=== PATIENT | female | born 1990 | race Caucasian/White ===

== ENCOUNTER 2019-03-10 07:01 | Day surgery (SDC) | payer BC, OTHER ==
--- NOTE | 2019-03-09 09:38 | PCM.PREANE ---
Preanesthetic Assessment - Anesthesia/Transfusion/Family Hx Anesthesia History: Prior Anesthesia Without Reaction Family History of Anesthesia Reaction: No Transfusion History: No Prior Transfusion(s) Intubation History: Unknown - Review of Systems General: No Symptoms Pulmonary: No Symptoms (Smoker: less than 1ppd for less than 5 years.) Cardiovascular: No Symptoms Gastrointestinal: Abdominal Pain (scale: 3/10) Neurological: No Symptoms Other: Reports: Easy Bruising, Thyroid Problems (History of thyromegaly), Sinus Problem (History of allergic rhinitis), Depression, Anxiety - Physical Assessment NPO Status Date: 03/09/19 NPO Status Time: 23:30 Pulse: 72 O2 Sat by Pulse Oximetry: 100 Respiratory Rate: 16 Blood Pressure: 127/75 Temperature: 36.8 C Height: 1.63 m Weight: 100 kg ASA Class: 2 Mental Status: Alert & Oriented x3 Airway Class: Mallampati = 2 Dentition: Reports: Normal Dentition, Caries Thyro-Mental Finger Breadths: 3 Mouth Opening Finger Breadths: 3 ROM/Head Extension: Full Lungs: Clear to Auscultation, Normal Respiratory Effort Cardiovascular: Regular Rate, Regular Rhythm, No Murmurs - Allergies Allergies/Adverse Reactions: Allergies Allergy/AdvReac Type Severity Reaction Status Date / Time Penicillins Allergy Hives Verified 03/09/19 13:28 Sulfa (Sulfonamide Allergy Hives Verified 03/09/19 13:28 Antibiotics) suture Allergy Itching Verified 03/09/19 13:28 - Anesthesia Plan Pre-Op Medication Ordered: None - Acknowledgements Anesthesia Type Planned: MAC Pt an Appropriate Candidate for the Planned Anesthesia: Yes Alternatives and Risks of Anesthesia Discussed w Pt/Guardian: Yes Pt/Guardian Understands and Agrees with Anesthesia Plan: Yes PreAnesthesia Questionnaire HEENT History: Reports: Allergic Rhinitis, Other (See Below) Other HEENT History: eye pain Gastrointestinal History: Reports: Other (See Below) Other Gastrointestinal History: abdominal pain, biliary colic Genitourinary History: Reports: Other (See Below) Other Genitourinary History: dysuria, flank pain, UTI 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) Other OB/BYN History: irregular menses, ovarian cyst Psychiatric History: Reports: Anxiety, Other (See Below) Other Psychiatric History: fatigue, increased irritability Endocrine/Metabolic History: Reports: Vitamin D Deficiency Other Endocrine/Metabolic History: thyromegaly - Past Surgical History GI Surgical History: Reports: Cholecystectomy - HOME MEDS Home Medications: Home Meds Cholecalciferol (Vitamin D3) [Vitamin D3] 1,000 unit PO DAILY 03/09/19 [History] Ibuprofen 1,000 mg PO BID PRN 03/09/19 [History] Multivitamin [Multiple Vitamins] 1 tab PO DAILY 03/09/19 [History] valACYclovir HCl [Valtrex] 500 mg PO DAILY 03/09/19 [History] - CURRENT (IN HOUSE) MEDS Current Meds: Current Medications Lactated Ringer's (Ringers, Lactated) 1,000 mls @ 125 mls/hr IV ASDIRECTED JEFF Stop: 03/10/19 23:00 Lidocaine/Sodium Bicarbonate (Buffered Lidocaine 1% In Ns 8.4%) 0.25 ml IDERM ONETIME PRN PRN Reason: Prior to IV Start Stop: 03/10/19 18:00 Sodium Chloride (Saline Flush) 10 ml FLUSH ASDIRECTED PRN PRN Reason: Keep Vein Open Stop: 03/10/19 18:00
[~2019-03-10 07:01] MED LIST: Lactated Ringers 1,000 ML IV SCH; Lidocaine 1%/Sod Bicarbonate in NS 8.4% 1 ML Syringe IDERM PRN; Sodium Chloride 0.9% 10 ML Syringe FLUSH PRN
[2019-03-10] MEDS ORDERED: Lidocaine 1% 6 ML ONE (07:27)
[2019-03-10] MEDS ORDERED: Propofol 200 MG/20 ML SDV ONE (07:28)
[2019-03-10] MEDS ORDERED: fentaNYL 100 MCG/2 ML SDV ONE (07:28)
--- NOTE | 2019-03-10 08:25 | PCM48HPAN ---
Post Anesthesia Note - EVALUATION WITHIN 48HRS OF ANESTHETIC Vital Signs in Normal Range: Yes Patient Participated in Evaluation: Yes Respiratory Function Stable: Yes Airway Patent: Yes Cardiovascular Function Stable: Yes Hydration Status Stable: Yes Pain Control Satisfactory: Yes Nausea and Vomiting Control Satisfactory: Yes Mental Status Recovered: Yes
[2019-03-10 09:30] VITALS: BP 124/77
--- NOTE | 2019-03-10 16:01 | OR ---
DATE OF OPERATION: 03/10/2019 SURGEON: Galindo Calderón MD PREOPERATIVE DIAGNOSIS: Question of celiac disease. POSTOPERATIVE DIAGNOSIS: 1. Question of celiac disease. 2. Sliding hiatal hernia. OPERATION PERFORMED: Esophagogastroduodenoscopy with biopsies. FINDINGS: She has a patulous EG junction with a sliding hiatal hernia. I did not identify any ulcers, no mucosal lesions. She does not appear to have villous blunting in the duodenum. There is no Pollock's esophagus. ANESTHESIA: Procedural sedation. COMPLICATIONS: None. ESTIMATED BLOOD LOSS: Minimal. DISPOSITION: Stable at the end of the procedure. PATHOLOGY: 1. Duodenum. 2. Antrum. 3. Body. 4. Fundus. 5. Distal esophagus. INDICATION: Taylor presented to my office with a question of celiac disease. She is seronegative, though she had marginally elevated IgG to gluten. The patient was booked for an EGD to investigate celiac disease. She was fully informed of the major risks of the procedure. These include, but are not limited to perforation of GI tract, bleeding, aspiration, pneumonia, recurrent surgery, and many other. She gave informed consent for what was done. DESCRIPTION OF PROCEDURE: Su was brought to the gastro suite and placed in the left lateral decubitus position. She was given a bite block and procedural sedation. The endoscope was passed uneventfully into the proximal esophagus. I advanced the scope slowly, keeping the lumen in view at all times. The scope was passed into the stomach and then flexed into the duodenum past the third portion of the duodenum and took random biopsies of the duodenum from the third portion down up to the first portion. I did not note any ulcers or villous blunting on gross examination. We withdrew the scope into the stomach and biopsied the antrum, body, and fundus. There was no evidence of ulcerations in the stomach. I did retroflex view the GE junction and found a patulous GE junction. I straightened the scope and brought it into the esophagus. There was no salmon pink mucosa, but she clearly has a sliding hiatal hernia. I biopsied the distal esophagus for esophagitis. I found no evidence of esophagitis on my examination. Toward the end of the procedure, I evacuated all the air from the stomach, checking from the biopsy sites for any further bleeding, and there was none. The scope was withdrawn into the esophagus, and the entirety of the esophagus was inspected for any mucosal lesions, and there were none. At the end of the procedure, the scope was withdrawn. She had no complications and tolerated the procedure well. DEBBIE /[id number]
== END 2019-03-10 08:50 | disposition home or self-care (01) ==
LOC: JD.SDS 07:01
PROVIDERS: ATTEND Surgery
DX: K44.9 Diaphragmatic hernia without obstruction or gangrene (principal); F41.9 Anxiety disorder, unspecified; F32.9 Major depressive disorder, single episode, unspecified; J30.9 Allergic rhinitis, unspecified; Z88.0 Allergy status to penicillin; Z88.2 Allergy status to sulfonamides; Z91.048 Other nonmedicinal substance allergy status; Z87.891 Personal history of nicotine dependence; Z79.899 Other long term (current) drug therapy
CPT/HCPCS: 43239; 81025; J2001; J2704; J3010; J7120; 00731

== ENCOUNTER 2020-07-04 10:38 | Emergency (ER) | payer OTHER ==
[2020-07-04 10:58] VITALS: BP 129/86; PULSE 73
--- NOTE | 2020-07-04 11:24 | EDM.PDOC ---
ED HPI GENERAL MEDICAL PROBLEM - General Chief Complaint: Respiratory Problem Stated Complaint: COVID + Time Seen by Provider: 07/04/20 11:05 Source of Information: Reports: Patient, RN Notes Reviewed History Limitations: Reports: No Limitations - History of Present Illness INITIAL COMMENTS - FREE TEXT/NARRATIVE: Patient is a 30-year-old female who presents to the ED for evaluation of her ongoing respiratory symptoms due to COVID-19. Patient states she was swabbed for COVID-19 on June 25, 2020, and she thinks that her symptoms may have started Friday, which was 1 day prior to the swab date. She states that she was abiding quarantine, and has been feeling well, up until this morning. She states that she woke up, feeling more short of breath, worse with exertion, some right-sided chest pain that seems to worsen when she takes a deep breath. She also notes a dry intermittent cough, she feels like she has to cough something up, but just states she cannot. She also notes that she has been fever free without the use of Tylenol or Advil since last June 27. Patient notes she is supposed to go back to work tomorrow, but was concerned about that return date. She notes she did try to call the [facility], but they gave her the "run around", and states no one would see her, as she might need hospitalization so they sent her to the ER for evaluation. She denies fever/chills, does have cough and shortness of breath, but no nausea/vomiting/diarrhea or any other sick-like symptoms. Patient's O2 sats at time of triage are 98% on room air, temperature is 97.4 F. Respiratory rate 18, in no visible respiratory distress whatsoever. She does also complain about feeling increased fatigue, but is still able to do many daily activities. She denies any chance of whatsoever. She states she is not sexually active at this time. Right Chest Pain Score (Numeric/FACES): 6 - Related Data Allergies Allergy/AdvReac Type Severity Reaction Status Date / Time Penicillins Allergy Hives Verified 07/04/20 10:59 Sulfa (Sulfonamide Allergy Hives Verified 07/04/20 10:59 Antibiotics) suture Allergy Itching Verified 07/04/20 10:59 Home Meds: Home Meds Cholecalciferol (Vitamin D3) [Vitamin D3] 1,000 unit PO DAILY 03/09/19 [History] Multivitamin [Multiple Vitamins] 1 tab PO DAILY 03/09/19 [History] valACYclovir HCl [Valtrex] 500 mg PO DAILY 03/09/19 [History] Ethinyl Estradiol/Etonogestrel [Nuvaring Vaginal Ring] 07/04/20 [History] estradioL [Estrogel] 1 dose TOP ASDIRECTED 07/04/20 [History] Past Medical History HEENT History: Reports: Allergic Rhinitis, Other (See Below) Other HEENT History: eye pain Gastrointestinal History: Reports: Other (See Below) Other Gastrointestinal History: abdominal pain, biliary colic Genitourinary History: Reports: Other (See Below) Other Genitourinary History: dysuria, flank pain, UTI 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) 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 History: irregular menses, ovarian cyst Psychiatric History: Reports: Anxiety, Other (See Below) Other Psychiatric History: fatigue, increased irritability Endocrine/Metabolic History: Reports: Vitamin D Deficiency Other Endocrine/Metabolic History: thyromegaly - Infectious Disease History Infectious Disease History: Reports: Novel Coronavirus (Jun) - Past Surgical History GI Surgical History: Reports: Cholecystectomy Musculoskeletal Surgical History: Reports: Other (See Below) Other Musculoskeletal Surgeries/Procedures:: right elbow surgery Social & Family History - Tobacco Use Smoking Status *Q: Never Smoker - Caffeine Use Caffeine Use: Reports: Coffee, Tea - Recreational Drug Use Recreational Drug Use: No - Living Situation & Occupation Living situation: Reports: Single, Alone 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 ED EXAM, GENERAL - Physical Exam Exam: See Below Exam Limited By: No Limitations General Appearance: Alert, WD/WN, No Apparent Distress Eye Exam: Bilateral Eye: EOMI, Normal Inspection, PERRL Throat/Mouth: Normal Inspection Head: Atraumatic, Normocephalic Neck: Normal Inspection Respiratory/Chest: No Respiratory Distress, Lungs Clear, Normal Breath Sounds, No Accessory Muscle Use, Other (chest mildly tender to palpation of the right anterior chest, in the midclavicular line) Cardiovascular: Normal Peripheral Pulses, Regular Rate, Rhythm, No Edema, No Murmur Peripheral Pulses: 2+: Radial (L), Radial (R) Extremities: Normal Inspection, Normal Capillary Refill Neurological: Alert, Oriented, Normal Cognition, No Motor/Sensory Deficits Psychiatric: Normal Affect, Normal Mood Skin Exam: Warm, Dry, Intact, Normal Color, No Rash Course - Vital Signs Last Recorded V/S: Last Vital Signs Temp 97.4 F 07/04/20 10:51 Pulse 73 07/04/20 10:51 Resp 18 07/04/20 10:51 BP 129/86 07/04/20 10:51 Pulse Ox 98 07/04/20 10:51 - Re-Assessments/Exams Free Text/Narrative Re-Assessment/Exam: 07/04/20 11:26 Patient presents to the ED for the evaluation of her ongoing respiratory symptoms with a diagnosis of COVID-19. Have ordered a 1 view chest x-ray to evaluate for possible brewing pneumonia. As patient has been afebrile, I do not believe labs would be pertinent at this time, or helpful, patient does agree at this time we will likely give her a few more days off of work, so she may recover a little longer, and will let her return on Friday if chest x-ray appears within normal limits. Nonetheless I do not believe she requires hospitalization at all. 07/04/20 11:46 X-ray does demonstrate no acute changes that would be suggestive of pneumonia or other consolidation. Departure - Departure Time of Disposition: 11:48 Disposition: Home, Self-Care 01 Condition: Good Clinical Impression: COVID-19 - Discharge Information *PRESCRIPTION DRUG MONITORING PROGRAM REVIEWED*: No *COPY OF PRESCRIPTION DRUG MONITORING REPORT IN PATIENT MANJEET: No Instructions: COVID-19: How to Protect Yourself and Others - CDC Forms: ED Department Discharge, ED Return to Work/School Form Additional Instructions: You were seen in the ER today for ongoing and/or worsening respiratory symptoms. Your chest x-ray showed no signs of pneumonia at this time. Your oxygen levels were great at 97-98% on room air. You have already been diagnosed with coronavirus, almost a week ago. It is likely that you are not shedding this virus any longer, but this disease is still quite unknown to most of healthcare community, you may have ongoing lingering respiratory symptoms for quite some time. This disease process seems to change on an individual basis. Please try to increase your oral fluid intake, and eat multiple small meals throughout the day, to keep yourself healthy. You may take 500 mg Tylenol every hours 6 hours for pain/fever relief. Do not exceed 4000 mg Tylenol in a 24-hour time span. However, running a fever is your body's natural response to illness, and it allows the body to develop antibodies to disease, we are recommending trying to limit the use of Tylenol as much as possible to allow your body's natural immune response. Sepsis Event Note (ED) - Evaluation Sepsis Screening Result: No Definite Risk - Focused Exam Vital Signs: Vital Signs Temp Pulse Resp BP Pulse Ox 07/04/20 10:51 97.4 F 73 18 129/86 98
--- NOTE | 2020-07-04 11:45 | CR ---
Chest: Portable view of the chest was obtained. Comparison: No previous study. Heart size and mediastinum are normal. Lungs are clear. Minimal scoliosis is noted within the spine. Previous cholecystectomy is noted. Impression: 1. Nothing acute is appreciated on portable chest x-ray. Diagnostic code #2 This report was dictated in MDT
== END 2020-07-04 12:20 | disposition home or self-care (01) ==
LOC: JD.ED 10:38
DX: U07.1 COVID-19 (principal); Z88.0 Allergy status to penicillin; Z88.2 Allergy status to sulfonamides; Z91.09 Other allergy status, other than to drugs and biological substances; Z79.899 Other long term (current) drug therapy
CPT/HCPCS: 71045; 71045-26; 99282; 99284-25

== ENCOUNTER 2020-12-18 17:49 | Emergency (ER) | payer OTHER ==
[2020-12-18 17:59] VITALS: BP 136/88; PULSE 76
--- NOTE | 2020-12-18 18:21 | EDM.PDOC ---
<Adelina Li - Last Filed: 12/18/20 18:14> ED HPI GENERAL MEDICAL PROBLEM - General Chief Complaint: Flank Pain Stated Complaint: RT FLANK PAIN Time Seen by Provider: 12/18/20 17:59 Source of Information: Reports: Patient History Limitations: Reports: No Limitations - History of Present Illness INITIAL COMMENTS - FREE TEXT/NARRATIVE: Taylor is a 30 year old female presenting to the ED with complaints of right flank pain. She was seen in clinic today for UTI like symptoms, but urine results were unremarkable other than mild yeast shown. She was told that her insurance would only be covered under an emergency or prior authorization to which she did not want to wait for that. She states the pain started roughly four days ago, while she had had a UTI for a couple of weeks and was treated with Macrobid. She describes the flank pain as sharp, stabbing and intermittent. She states the pain is located in her right mid upper back and radiates down into her pelvic region. She denies urgency, frequency, burning with urination. However, she does complain of inability to fully empty her bladder. She states the amount voided varies each time she goes. She complains of mild nausea secondary to the flank pain and states she either "wants to vomit or pass out" due to the pain. She also states the pain takes her breath away. She personally does not have a past history of kidney stones, but both her mother and father have had kidney stones. She denies fever, chills, sweats, or abdominal pain. Right Flank Pain Score (Numeric/FACES): 8 - Related Data Allergies Allergy/AdvReac Type Severity Reaction Status Date / Time Penicillins Allergy Severe Hives Verified 12/18/20 17:59 suture Allergy Severe Itching Verified 12/18/20 17:59 Sulfa (Sulfonamide AdvReac Severe Other Verified 12/18/20 17:59 Antibiotics) Home Meds: Home Meds Cholecalciferol (Vitamin D3) [Vitamin D3] 1,000 unit PO DAILY 03/09/19 [History] valACYclovir HCl [Valtrex] 500 mg PO DAILY 03/09/19 [History] Ethinyl Estradiol/Etonogestrel [Nuvaring Vaginal Ring] 07/04/20 [History] Cefdinir [Omnicef] 300 mg PO BID 7 Days #14 cap 12/18/20 [Rx] Past Medical History HEENT History: Reports: Allergic Rhinitis, Other (See Below) Other HEENT History: eye pain Cardiovascular History: Reports: None Respiratory History: Reports: None Gastrointestinal History: Reports: Other (See Below) Other Gastrointestinal History: abdominal pain, biliary colic Genitourinary History: Reports: Other (See Below) Other Genitourinary History: dysuria, flank pain, UTI 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: irregular 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, ovarian cyst Musculoskeletal History: Reports: None Neurological History: Reports: None Psychiatric History: Reports: Anxiety, Other (See Below) Other Psychiatric History: fatigue, increased irritability Endocrine/Metabolic History: Reports: Obesity/BMI 30+, Vitamin D Deficiency Other Endocrine/Metabolic History: thyromegaly Hematologic History: Reports: None Immunologic History: Reports: None Oncologic (Cancer) History: Reports: None Dermatologic History: Reports: None - Infectious Disease History Infectious Disease History: Reports: Novel Coronavirus (Jun) - Past Surgical History HEENT Surgical History: Reports: Tonsillectomy GI Surgical History: Reports: Cholecystectomy Musculoskeletal Surgical History: Reports: Other (See Below) Other Musculoskeletal Surgeries/Procedures:: right elbow surgery Social & Family History - Tobacco Use Tobacco Use Status *Q: Never Tobacco User - Caffeine Use Caffeine Use: Reports: Coffee - Recreational Drug Use Recreational Drug Use: No - Living Situation & Occupation Living situation: Reports: Single, Alone 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 ED EXAM, RENAL/ - Physical Exam Exam: See Below Exam Limited By: No Limitations General Appearance: Alert, WD/WN, No Apparent Distress Respiratory/Chest: No Respiratory Distress, Lungs Clear, Normal Breath Sounds, No Accessory Muscle Use, Chest Non-Tender Cardiovascular: Normal Peripheral Pulses, Regular Rate, Rhythm, No Edema, No Gallop, No JVD, No Murmur, No Rub GI/Abdominal: Normal Bowel Sounds, Soft, Non-Tender Back Exam: CVA Tenderness (R) (Patient is markedly tender to light touch and moved away in response to the discomfort. ) Extremities: Normal Inspection, Normal Range of Motion Neurological: Alert, Oriented, CN II-XII Intact Psychiatric: Normal Affect, Normal Mood Skin Exam: Warm, Dry, Intact, Normal Color, No Rash Lymphatic: No Adenopathy Course - Re-Assessments/Exams Free Text/Narrative Re-Assessment/Exam: 12/18/20 18:24 Taylor is a 30 year old female presenting to the ED with complaints of right flank pain. The pain started roughly four days ago and has been sharp, stabbing and intermittent. She states the pain takes her breath away while making her want to vomit or pass out. She has no urinary symptoms other than the feeling of inability to empty her bladder all of the way. Due to her severe CVA tenderness and family history of kidney stones, CT abdomen pelvis will be done along with routine labs to assess kidney function. Nausea medication is ordered. Departure - Departure Disposition: Home, Self-Care 01 Clinical Impression: Right flank pain UTI (urinary tract infection) Qualifiers: Urinary tract infection type: acute cystitis Hematuria presence: with hematuria Qualified Code(s): N30.01 - Acute cystitis with hematuria - Discharge Information Instructions: Pyelonephritis, Adult, [id number] Referrals: Katarzyna Ray PA-C [Primary Care Provider] - Forms: ED Department Discharge Additional Instructions: You were evaluated in the ER today for your right flank pain. A CT was done at this ER visit, this demonstrated no sign of a kidney stone at today's visit, however your outpatient labs done prior to coming to the ER, did demonstrate ongoing UTI, yeast infection that you were treated for however if you do not notice improvement of symptoms within 2 to 3 days time I recommend you follow-up with your regular care provider for repeat dosing. Possible bacterial vaginosis again you should follow-up with your regular provider for. You have been started on an antibiotic called Omnicef, dosing will be 1 tablet twice daily for the next 7 days. Your urine was sent for culture by your regular care provider, if you should need a change in your antibiotics, she should be able to facilitate this. Please note that antibiotics can take up to 48 hours to start providing benefit. Recommend you take Tylenol/ibuprofen every 6 hours as needed for further pain relief. Do not exceed 4000 mg Tylenol or 3200 mg ibuprofen in a 24-hour time span. Please return to the ED if your symptoms change or worsen. Sepsis Event Note (ED) - Evaluation Sepsis Screening Result: No Definite Risk <Myrna Oneill V - Last Filed: 12/18/20 19:10> Course - Vital Signs Last Recorded V/S: Last Vital Signs Temp 96.9 F 12/18/20 17:56 Pulse 76 12/18/20 17:56 Resp 16 12/18/20 17:56 BP 136/88 12/18/20 17:56 Pulse Ox 98 12/18/20 17:56 - Orders/Labs/Meds Orders: Active Orders 24 hr Category Date Time Status Cefdinir [Omnicef] Med 12/18/20 19:05 Once 300 mg PO ONETIME ONE Labs: Laboratory Tests 12/18/20 12/18/20 Range/Units 18:23 18:23 WBC 9.60 (3.98-10.04) K/mm3 RBC 4.48 (3.98-5.22) M/mm3 Hgb 12.7 D (11.2-15.7) gm/dl Hct 39.7 (34.1-44.9) % MCV 88.6 (79.4-94.8) fl MCH 28.3 (25.6-32.2) pg MCHC 32.0 L (32.2-35.5) g/dl RDW Std Deviation 41.4 (36.4-46.3) fL Plt Count 467 H (182-369) K/mm3 MPV 8.1 L (9.4-12.3) fl Neut % (Auto) 57.0 (34.0-71.1) % Lymph % (Auto) 34.5 (19.3-51.7) % Parmer % (Auto) 5.4 (4.7-12.5) % Eos % (Auto) 2.5 (0.7-5.8) Baso % (Auto) 0.5 (0.1-1.2) % Neut # (Auto) 5.47 (1.56-6.13) K/mm3 Lymph # (Auto) 3.31 (1.18-3.74) K/mm3 Parmer # (Auto) 0.52 H (0.24-0.36) K/mm3 Eos # (Auto) 0.24 (0.04-0.36) K/mm3 Baso # (Auto) 0.05 (0.01-0.08) K/mm3 Sodium 143 (136-145) mEq/L Potassium 3.7 (3.5-5.1) mEq/L Chloride 106 (98-107) mEq/L Carbon Dioxide 23 (21-32) mEq/L Anion Gap 17.7 H (5-15) BUN 11 (7-18) mg/dL Creatinine 0.8 (0.55-1.02) mg/dL Est Cr Clr Drug Dosing 88.79 mL/min Estimated GFR (MDRD) > 60 (>60) mL/min BUN/Creatinine Ratio 13.8 L (14-18) Glucose 85 (74-106) mg/dL Calcium 8.8 (8.5-10.1) mg/dL Total Bilirubin 0.3 (0.2-1.0) mg/dL AST 14 L (15-37) U/L ALT 22 (14-59) U/L Alkaline Phosphatase 67 (46-116) U/L Total Protein 7.6 (6.4-8.2) g/dl Albumin 3.6 (3.4-5.0) g/dl Globulin 4.0 gm/dL Albumin/Globulin Ratio 0.9 L (1-2) Meds: Medications Discontinued Medications Generic Name Dose Route Start Last Admin Trade Name Freq PRN Reason Stop Dose Admin Hydromorphone HCl 0.5 mg 12/18/20 18:23 Dilaudid IM 12/18/20 18:24 ONETIME ONE Ondansetron HCl 4 mg 12/18/20 18:23 Zofran Odt PO 12/18/20 18:24 ONETIME ONE - Re-Assessments/Exams Free Text/Narrative Re-Assessment/Exam: 12/18/20 19:05 I have read and reviewed the student's HPI and examined the patient and agree with YANIRA Martinez-student. CT demonstrates no sign of a kidney stone however patient still having ongoing pain. We will start her on Omnicef 300 mg twice daily for the next 7 days and have her follow-up with her regular care provider for ongoing management. Review of patient's labs done today, do demonstrate a ongoing UTI, yeast infection, that she states she was treated for, Possible bacterial vaginosis, that she is going to follow-up with her regular care provider for. Departure - Departure Time of Disposition: 19:07 Condition: Good - Discharge Information *PRESCRIPTION DRUG MONITORING PROGRAM REVIEWED*: No *COPY OF PRESCRIPTION DRUG MONITORING REPORT IN PATIENT MANJEET: No Sepsis Event Note (ED) - Focused Exam Vital Signs: Vital Signs Temp Pulse Resp BP Pulse Ox 12/18/20 17:56 96.9 F 76 16 136/88 98 - My Orders Last 24 Hours: My Active Orders 12/18/20 19:05 Cefdinir [Omnicef] 300 mg PO ONETIME ONE - Assessment/Plan Last 24 Hours: My Active Orders 12/18/20 19:05 Cefdinir [Omnicef] 300 mg PO ONETIME ONE
[2020-12-18] MEDS ORDERED: Ondansetron 4 MG Tab.DIS PO ONE (18:23)
[2020-12-18] MEDS ORDERED: HYDROmorphone 0.5 MG/0.5 ML Syringe IM ONE (18:23)
--- NOTE | 2020-12-18 18:49 | CT ---
CT abdomen and pelvis Technique: Multiple axial sections were obtained from slightly below the top of the liver inferiorly through the pubic symphysis. Intravenous and oral contrast was not utilized. Study has been performed as a ureteral stone protocol. Findings: Kidneys show no abnormal calcifications. No ureteral dilatation or ureteral stone is seen. No bladder calculi are appreciated. No inflammatory change is seen around the kidneys. Visualized lung bases show nothing acute. Visualized portions of the liver and spleen appear within normal limits. Adrenal glands show no nodule. Pancreas is normal. Surgical clips are seen from prior cholecystectomy. Aorta shows no aneurysm. No retroperitoneal adenopathy or mesenteric abnormalities are seen. Appendix is seen which is normal. No pelvic mass or adenopathy is appreciated. Bone window surveys were obtained which show no acute osseous finding. Impression: 1. No ureteral stone or ureteral dilatation is seen. No inflammatory change is seen around the kidneys. 2. Other findings believed to be within normal limits as described above. Diagnostic code #1
[2020-12-18] MEDS ORDERED: Cefdinir 300 MG Cap PO ONE (19:05)
== END 2020-12-18 19:20 | disposition home or self-care (01) ==
LOC: JD.ED 17:49
DX: N30.01 Acute cystitis with hematuria (principal); E66.9 Obesity, unspecified; Z68.41 Body mass index [BMI] 40.0-44.9, adult; Z88.0 Allergy status to penicillin; Z91.048 Other nonmedicinal substance allergy status; Z88.2 Allergy status to sulfonamides
CPT/HCPCS: 36415; 74176; 80053; 85025; 96372; 99284; A9270; J1170; 99283

== ENCOUNTER 2021-04-17 13:44 | Emergency (ER) | payer BC, OTHER ==
--- NOTE | 2021-04-17 13:50 | EDM.PDOC ---
ED HPI GENERAL MEDICAL PROBLEM - General Chief Complaint: Lower Extremity Injury/Pain Stated Complaint: L ANKLE INJURY Time Seen by Provider: 04/17/21 13:49 - History of Present Illness INITIAL COMMENTS - FREE TEXT/NARRATIVE: 31-year-old female presents the emergency room with a left ankle injury. Shortly before arrival patient stepped in a hole. Everything happened so fast she is not entirely sure what happened. She has pain on the outside of her ankle and behind her ankle. Patient denies any other injury associated with this most unfortunate event. The patient did not fall. Left Ankle Pain Score (Numeric/FACES): 10 - Related Data Allergies Allergy/AdvReac Type Severity Reaction Status Date / Time Penicillins Allergy Severe Hives Verified 04/17/21 13:52 suture Allergy Severe Itching Verified 04/17/21 13:52 Sulfa (Sulfonamide AdvReac Severe Other Verified 04/17/21 13:52 Antibiotics) Home Meds: Home Meds Cholecalciferol (Vitamin D3) [Vitamin D3] 1,000 unit PO DAILY 03/09/19 [History] valACYclovir HCl [Valtrex] 500 mg PO DAILY 03/09/19 [History] Ethinyl Estradiol/Etonogestrel [Nuvaring Vaginal Ring] 07/04/20 [History] Past Medical History HEENT History: Reports: Allergic Rhinitis, Other (See Below) Other HEENT History: eye pain Cardiovascular History: Reports: None Respiratory History: Reports: None Gastrointestinal History: Reports: Other (See Below) Other Gastrointestinal History: abdominal pain, biliary colic Genitourinary History: Reports: Other (See Below) Other Genitourinary History: dysuria, flank pain, UTI 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 PILOT MECHANIC History: irregular menses, ovarian cyst Musculoskeletal History: Reports: None Neurological History: Reports: None Psychiatric History: Reports: Anxiety, Other (See Below) Other Psychiatric History: fatigue, increased irritability Endocrine/Metabolic History: Reports: Obesity/BMI 30+, Vitamin D Deficiency Other Endocrine/Metabolic History: thyromegaly Hematologic History: Reports: None Immunologic History: Reports: None Oncologic (Cancer) History: Reports: None Dermatologic History: Reports: None - Infectious Disease History Infectious Disease History: Reports: Novel Coronavirus (Jun) - Past Surgical History HEENT Surgical History: Reports: Tonsillectomy GI Surgical History: Reports: Cholecystectomy Musculoskeletal Surgical History: Reports: Other (See Below) Other Musculoskeletal Surgeries/Procedures:: right elbow surgery Social & Family History - Caffeine Use Caffeine Use: Reports: Coffee - Living Situation & Occupation Living situation: Reports: Single, Alone 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) Review of Systems - Review of Systems Review Of Systems: See Below Constitutional: Reports: No Symptoms Respiratory: Reports: No Symptoms Cardiovascular: Reports: No Symptoms GI/Abdominal: Reports: No Symptoms Genitourinary: Reports: No Symptoms, Other (Patient denies any possibility of being ) ED EXAM, GENERAL - Physical Exam Exam: See Below Exam Limited By: No Limitations General Appearance: Alert, No Apparent Distress Respiratory/Chest: No Respiratory Distress, Lungs Clear, Normal Breath Sounds Cardiovascular: Regular Rate, Rhythm, No Edema, No Murmur Extremities: Leg Pain (No significant discomfort around the medial malleolus patient has mild discomfort in the posterior aspect of the lateral malleolus. But most of this comes to the area of the Achilles. No foot pain with palpation no pain over the base the fifth metatarsal. Neurovascular status of the foot is debbie), Other (Patient has significant pain behind her ankle and again on the lateral aspect it is really hard to get an accurate exam. She has maintained some strength in her Achilles however when she relaxes these muscles the pain gets worse. ) Course - Vital Signs Last Recorded V/S: Last Vital Signs Temp 36.3 C 04/17/21 13:56 Pulse 102 H 04/17/21 13:56 Resp 18 04/17/21 13:56 BP 165/94 H 04/17/21 13:56 Pulse Ox 98 04/17/21 13:56 - Orders/Labs/Meds Orders: Active Orders 24 hr Category Date Time Status Durable Medical Equipment for Discharge [DME for Oth 04/17/21 15:01 Ordered Discharge] [COMM] Stat - Re-Assessments/Exams Free Text/Narrative Re-Assessment/Exam: 04/17/21 15:05 X-ray examination is negative for acute fracture dislocation of the ankle and tib-fib on the left side. Place the patient in a walking boot and crutches I cannot confirm a significant strain or partial disruption to the Achilles. We will keep the patient nonweightbearing with close follow-up in the clinic later this week. The patient will use crutches and a walking boot to minimize further injury and facilitate healing and recovery for this apparent soft tissue injury. Departure - Departure Time of Disposition: 15:08 Disposition: Home, Self-Care 01 Clinical Impression: Left ankle injury - Discharge Information Referrals: Katarzyna Ray PA-C [Primary Care Provider] - Forms: ED Department Discharge Additional Instructions: Return to the emergency room with any questions problems or worsening symptoms. Follow-up in the clinic in a couple of days either or Friday for recheck. Use the walking boot at all times and get around using the crutches at all times you should not bear weight on your left leg. Tylenol and/or Motrin as needed for discomfort Sepsis Event Note (ED) - Focused Exam Vital Signs: Vital Signs Temp Pulse Resp BP Pulse Ox 04/17/21 13:56 36.3 C 102 H 18 165/94 H 98 - My Orders Last 24 Hours: My Active Orders 04/17/21 15:01 Durable Medical Equipment for Discharge [DME for Discharge] [COMM] Stat - Assessment/Plan Last 24 Hours: My Active Orders 04/17/21 15:01 Durable Medical Equipment for Discharge [DME for Discharge] [COMM] Stat
[2021-04-17 14:00] VITALS: BP 165/94; PULSE 102
--- NOTE | 2021-04-17 14:56 | CR ---
Left tibia and fibula: AP and lateral views of the left tibia and fibula were obtained. Comparison: No prior left tibia or fibula study is available. No acute fracture or other bony abnormality is appreciated. Impression: 1. Nothing acute is appreciated on 2 view left tibia and fibula study. Diagnostic code #1
--- NOTE | 2021-04-17 14:57 | CR ---
Left ankle: 4 views of the left ankle were obtained. Comparison: No prior left ankle study is available. Ankle mortise is symmetric. No acute fracture, dislocation or other bony abnormality is appreciated. Impression: 1. Nothing acute is seen on left ankle exam. Diagnostic code #1
== END 2021-04-17 16:30 | disposition home or self-care (01) ==
LOC: JD.ED 13:44
DX: S99.912A Unspecified injury of left ankle, initial encounter (principal); E66.9 Obesity, unspecified; Z68.41 Body mass index [BMI] 40.0-44.9, adult; Z88.0 Allergy status to penicillin; Z91.048 Other nonmedicinal substance allergy status; Z88.2 Allergy status to sulfonamides; X50.9XXA Other and unspecified overexertion or strenuous movements or postures, initial encounter
CPT/HCPCS: 73590-26-LT; 73590-LT; 73610-26-LT; 73610-LT; 99283; 99283-25

== ENCOUNTER 2021-11-05 12:46 | Emergency (ER) | payer BC ==
[2021-11-05 12:56] VITALS: BP 136/70; PULSE 105
[2021-11-05] MEDS ORDERED: Sodium Chloride 0.9% 10 ML Syringe FLUSH PRN ×2 (13:01→14:03)
[2021-11-05] MEDS ORDERED: HYDROmorphone 0.5 MG/0.5 ML Syringe IVPUSH ONE (13:20)
[2021-11-05] MEDS ORDERED: Sodium Chloride 0.9% 1,000 ML IV STA (13:20)
[2021-11-05] MEDS ORDERED: Ondansetron 4 MG/2 ML SDV IVPUSH ONE (13:20)
--- NOTE | 2021-11-05 13:41 | EDM.PDOC ---
ED HPI GENERAL MEDICAL PROBLEM - General Chief Complaint: Gastrointestinal Problem Stated Complaint: RIGHT SIDE PAIN Time Seen by Provider: 11/05/21 13:12 Source of Information: Reports: Patient, RN Notes Reviewed History Limitations: Reports: No Limitations - History of Present Illness INITIAL COMMENTS - FREE TEXT/NARRATIVE: Patient is a 31-year-old female presenting to the emergency department with complaints of periumbilical and right lower quadrant abdominal pain. Reports symptoms began around 5 AM this morning. She describes it as a constant pain with occasional "stabbing "pains. She has been having diarrhea since this morning and feels quite nauseous but has not vomited. Denies any blood in her stool. She has not had any fevers but states she has felt chilled. She has had previous cholecystectomy but does still have her appendix. Denies any history of kidney stones. Right Lower Abdomen Pain Score (Numeric/FACES): 8 - Related Data Allergies Allergy/AdvReac Type Severity Reaction Status Date / Time Penicillins Allergy Intermediate Hives Verified 11/05/21 12:51 suture Allergy Mild Itching Verified 11/05/21 12:51 Sulfa (Sulfonamide AdvReac Mild Other Verified 11/05/21 12:51 Antibiotics) Home Meds: Home Meds Cholecalciferol (Vitamin D3) [Vitamin D3] 1,000 unit PO DAILY 03/09/19 [History] valACYclovir HCl [Valtrex] 500 mg PO DAILY 03/09/19 [History] Ethinyl Estradiol/Etonogestrel [Nuvaring Vaginal Ring] 1 vag ring VAG ASDIRECTED 07/04/20 [History] Dicyclomine [Bentyl] 20 mg PO Q8H PRN #12 tab 11/05/21 [Rx] Nitrofurantoin Monohyd/M-Cryst [Macrobid 100 mg Capsule] 100 mg PO BID 5 Days #10 capsule 11/05/21 [Rx] Ondansetron [Zofran ODT] 4 mg PO Q6H PRN #10 tab.dis 11/05/21 [Rx] Past Medical History HEENT History: Reports: Allergic Rhinitis, Other (See Below) Other HEENT History: eye pain Cardiovascular History: Reports: None Respiratory History: Reports: None Gastrointestinal History: Reports: Other (See Below) Other Gastrointestinal History: abdominal pain, biliary colic Genitourinary History: Reports: Other (See Below) Other Genitourinary History: dysuria, flank pain, UTI 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 VETERINARY RECEPTIONIST History: irregular menses, ovarian cyst Musculoskeletal History: Reports: None Neurological History: Reports: None Psychiatric History: Reports: Anxiety, Other (See Below) Other Psychiatric History: fatigue, increased irritability Endocrine/Metabolic History: Reports: Obesity/BMI 30+, Vitamin D Deficiency Other Endocrine/Metabolic History: thyromegaly Hematologic History: Reports: None Immunologic History: Reports: None Oncologic (Cancer) History: Reports: None Dermatologic History: Reports: None - Infectious Disease History Infectious Disease History: Reports: Novel Coronavirus - Past Surgical History Head Surgeries/Procedures: Reports: None HEENT Surgical History: Reports: Tonsillectomy Cardiovascular Surgical History: Reports: None Respiratory Surgical History: Reports: None GI Surgical History: Reports: Cholecystectomy Female Surgical History: Reports: None Neurological Surgical History: Reports: None Musculoskeletal Surgical History: Reports: Other (See Below) Other Musculoskeletal Surgeries/Procedures:: right elbow surgery Oncologic Surgical History: Reports: None Dermatological Surgical History: Reports: None Social & Family History - Family History Family Medical History: No Pertinent Family History - Tobacco Use Tobacco Use Status *Q: Never Tobacco User Second Hand Smoke Exposure: No - Caffeine Use Caffeine Use: Reports: Coffee - Recreational Drug Use Recreational Drug Use: No - Living Situation & Occupation Living situation: Reports: Single, Alone 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 Denies: Fever HEENT: Reports: No Symptoms Respiratory: Reports: No Symptoms Cardiovascular: Reports: No Symptoms Endocrine: Reports: No Symptoms GI/Abdominal: Reports: Abdominal Pain, Diarrhea, Nausea. Denies: Black Stool, Hematemesis, Hematochezia, Vomiting : Reports: Flank Pain. Denies: Dysuria, Hematuria Musculoskeletal: Reports: No Symptoms Skin: Reports: No Symptoms Neurological: Reports: No Symptoms Psychiatric: Reports: No Symptoms Hematologic/Lymphatic: Reports: No Symptoms Immunologic: Reports: No Symptoms ED EXAM, GI/ABD - Physical Exam Exam: See Below Exam Limited By: No Limitations General Appearance: Alert, WD/WN, No Apparent Distress Respiratory/Chest: No Respiratory Distress, Lungs Clear, Normal Breath Sounds, No Accessory Muscle Use, Chest Non-Tender Cardiovascular: Normal Peripheral Pulses, Regular Rate, Rhythm, No Edema, No Gallop, No JVD, No Murmur, No Rub GI/Abdominal Exam: Normal Bowel Sounds, Soft, No Organomegaly, No Distention, No Abnormal Bruit, No Mass, Pelvis Stable, Tender (Periumbilical and right lower quadrant) Neurological: Alert, Oriented, CN II-XII Intact, Normal Cognition, Normal Gait, Normal Reflexes, No Motor/Sensory Deficits Psychiatric: Normal Affect, Normal Mood Skin Exam: Warm, Dry, Intact, Normal Color, No Rash Course - Vital Signs Last Recorded V/S: Last Vital Signs Temp 97.9 F 11/05/21 12:53 Pulse 105 H 11/05/21 12:53 Resp 16 11/05/21 12:53 BP 136/70 11/05/21 12:53 Pulse Ox 98 11/05/21 12:53 - Orders/Labs/Meds Orders: Active Orders 24 hr Category Date Time Status CULTURE URINE [MREF] Stat Lab 11/05/21 13:50 Received Peripheral IV Insertion Adult [OM.PC] Stat Oth 11/05/21 13:01 Ordered Labs: Laboratory Tests 11/05/21 11/05/21 11/05/21 Range/Units 13:50 13:50 13:50 WBC 15.61 H (3.98-10.04) K/mm3 RBC 4.53 (3.98-5.22) M/mm3 Hgb 13.0 D (11.2-15.7) gm/dl Hct 39.4 (34.1-44.9) % MCV 87.0 (79.4-94.8) fl MCH 28.7 (25.6-32.2) pg MCHC 33.0 (32.2-35.5) g/dl RDW Std Deviation 37.6 (36.4-46.3) fL Plt Count 519 H (182-369) K/mm3 MPV 8.1 L (9.4-12.3) fl Neut % (Auto) 86.7 H (34.0-71.1) % Lymph % (Auto) 6.7 L (19.3-51.7) % [place] % (Auto) 5.1 (4.7-12.5) % Eos % (Auto) 0.8 (0.7-5.8) Baso % (Auto) 0.4 (0.1-1.2) % Neut # (Auto) 13.54 H (1.56-6.13) K/mm3 Lymph # (Auto) 1.05 L (1.18-3.74) K/mm3 [place] # (Auto) 0.79 H (0.24-0.36) K/mm3 Eos # (Auto) 0.12 (0.04-0.36) K/mm3 Baso # (Auto) 0.06 (0.01-0.08) K/mm3 Sodium (136-145) mEq/L Potassium (3.5-5.1) mEq/L Chloride (98-107) mEq/L Carbon Dioxide (21-32) mEq/L Anion Gap (5-15) BUN (7-18) mg/dL Creatinine (0.55-1.02) mg/dL Est Cr Clr Drug Dosing mL/min Estimated GFR (MDRD) (>60) mL/min BUN/Creatinine Ratio (14-18) Glucose (70-99) mg/dL Calcium (8.5-10.1) mg/dL Total Bilirubin (0.2-1.0) mg/dL AST (15-37) U/L ALT (14-59) U/L Alkaline Phosphatase (46-116) U/L C-Reactive Protein (<1.0) mg/dL Total Protein (6.4-8.2) g/dl Albumin (3.4-5.0) g/dl Globulin gm/dL Albumin/Globulin Ratio (1-2) Lipase (73-393) U/L HCG, Qual Negative (NEGATIVE) Urine Color Yellow (Yellow) Urine Appearance Clear (Clear) Urine pH 5.5 (5.0-8.0) Ur Specific [place] > or = 1.030 (1.005-1.030) Urine Protein Negative (Negative) Urine Glucose (UA) Negative (Negative) Urine Ketones Negative (Negative) Urine Occult Blood Negative (Negative) Urine Nitrite Negative (Negative) Urine Bilirubin Negative (Negative) Urine Urobilinogen 0.2 (0.2-1.0) Ur Leukocyte Esterase 1+ H (Negative) Urine RBC 0-5 (0-5) /hpf Urine WBC 5-10 H (0-5) /hpf Ur Squamous Epith Cells 0-5 (0-5) /hpf Urine Bacteria Moderate H (FEW) /hpf Urine Mucus Few (FEW) /hpf SARS-CoV-2 RNA (GABRIEL) (NEGATIVE) 11/05/21 11/05/21 11/05/21 Range/Units 13:50 13:50 14:10 WBC (3.98-10.04) K/mm3 RBC (3.98-5.22) M/mm3 Hgb (11.2-15.7) gm/dl Hct (34.1-44.9) % MCV (79.4-94.8) fl MCH (25.6-32.2) pg MCHC (32.2-35.5) g/dl RDW Std Deviation (36.4-46.3) fL Plt Count (182-369) K/mm3 MPV (9.4-12.3) fl Neut % (Auto) (34.0-71.1) % Lymph % (Auto) (19.3-51.7) % [place] % (Auto) (4.7-12.5) % Eos % (Auto) (0.7-5.8) Baso % (Auto) (0.1-1.2) % Neut # (Auto) (1.56-6.13) K/mm3 Lymph # (Auto) (1.18-3.74) K/mm3 [place] # (Auto) (0.24-0.36) K/mm3 Eos # (Auto) (0.04-0.36) K/mm3 Baso # (Auto) (0.01-0.08) K/mm3 Sodium 141 (136-145) mEq/L Potassium 4.2 (3.5-5.1) mEq/L Chloride 106 (98-107) mEq/L Carbon Dioxide 22 (21-32) mEq/L Anion Gap 17.2 H (5-15) BUN 14 (7-18) mg/dL Creatinine 0.7 (0.55-1.02) mg/dL Est Cr Clr Drug Dosing 100.55 mL/min Estimated GFR (MDRD) > 60 (>60) mL/min BUN/Creatinine Ratio 20.0 H (14-18) Glucose 96 (70-99) mg/dL Calcium 8.5 (8.5-10.1) mg/dL Total Bilirubin 0.5 (0.2-1.0) mg/dL AST 3 L (15-37) U/L ALT 11 L (14-59) U/L Alkaline Phosphatase 89 (46-116) U/L C-Reactive Protein 3.1 H* (<1.0) mg/dL Total Protein 7.3 (6.4-8.2) g/dl Albumin 3.4 (3.4-5.0) g/dl Globulin 3.9 gm/dL Albumin/Globulin Ratio 0.9 L (1-2) Lipase 67 L (73-393) U/L HCG, Qual (NEGATIVE) Urine Color (Yellow) Urine Appearance (Clear) Urine pH (5.0-8.0) Ur Specific [place] (1.005-1.030) Urine Protein (Negative) Urine Glucose (UA) (Negative) Urine Ketones (Negative) Urine Occult Blood (Negative) Urine Nitrite (Negative) Urine Bilirubin (Negative) Urine Urobilinogen (0.2-1.0) Ur Leukocyte Esterase (Negative) Urine RBC (0-5) /hpf Urine WBC (0-5) /hpf Ur Squamous Epith Cells (0-5) /hpf Urine Bacteria (FEW) /hpf Urine Mucus (FEW) /hpf SARS-CoV-2 RNA (GABRIEL) Negative (NEGATIVE) Meds: Medications Discontinued Medications Generic Name Dose Route Start Last Admin Trade Name Freq PRN Reason Stop Dose Admin Diatrizoate Meglum/Diatrizoate Sod 120 ml 11/05/21 14:03 11/05/21 14:36 Diatrizoate Meglumine/Diatrizoate Sodium 37% 120 Ml Bottle PO 11/05/21 14:04 30 ml ONETIME ONE Administration Dicyclomine HCl 20 mg 11/05/21 15:12 11/05/21 15:29 Dicyclomine 10 Mg Cap PO 11/05/21 15:13 20 mg ONETIME ONE Administration Hydromorphone HCl 0.5 mg 11/05/21 13:20 11/05/21 13:43 Hydromorphone 0.5 Mg/0.5 Ml Syringe IVPUSH 11/05/21 13:21 0.5 mg ONETIME ONE Administration Sodium Chloride 1,000 mls @ 999 mls/hr 11/05/21 13:20 11/05/21 13:46 Normal Saline IV 11/05/21 14:20 999 mls/hr NOW STA Administration Iopamidol 100 ml 11/05/21 14:03 11/05/21 14:35 Iopamidol 612 Mg/Ml 100 Ml Bottle IVPUSH 11/05/21 14:04 100 ml ONETIME ONE Administration Iopamidol 50 ml 11/05/21 14:03 11/05/21 14:35 Iopamidol 612 Mg/Ml 50 Ml Sdv IVPUSH 11/05/21 14:04 50 ml ONETIME ONE Administration Ondansetron HCl 4 mg 11/05/21 13:20 11/05/21 13:42 Ondansetron 4 Mg/2 Ml Sdv IVPUSH 11/05/21 13:21 4 mg ONETIME ONE Administration Sodium Chloride 10 ml 11/05/21 13:01 11/05/21 13:46 Sodium Chloride 0.9% 10 Ml Syringe FLUSH 10 ml ASDIRECTED PRN Administration Keep Vein Open Sodium Chloride 10 ml 11/05/21 14:03 Sodium Chloride 0.9% 10 Ml Syringe FLUSH ONETIME PRN IV FLUSH - Re-Assessments/Exams Free Text/Narrative Re-Assessment/Exam: She is a 31-year-old female presenting to the emergency department with complaints of periumbilical and right lower quadrant abdominal pain with radiation into her right flank. Symptoms began around 5 AM this morning. She has had intense diarrhea and nausea since that time but denies any vomiting. She said no documented fevers. On exam, she does have localized periumbilical and right lower quadrant abdominal tenderness. Mild right CVA tenderness. I have ordered blood work, urinalysis, hCG, CT scan abdomen pelvis with contrast, and Covid testing. I will give IV fluids of NS at 150 mill per hour, Zofran, Dilaudid. 11/05/21 15:16 Hematology significant for WBC slightly elevated 15.61, anion gap 17.2, CRP 3.1. hCG is negative. Covid is negative. Urinalysis shows 1+ leukocyte esterase, 5-10 WBCs, and moderate bacteria. CT scan of the abdomen pelvis shows findings consistent with unspecified enteritis. Results discussed with patient. She is feeling much better. We will discharge with prescription for Bentyl and Zofran. Also start on Macrobid for likely urinary tract infection. Urine has been sent for culture. Discussed return precautions. Discharge instructions as document. Departure - Departure Time of Disposition: 15:16 Disposition: Home, Self-Care 01 Condition: Good Clinical Impression: Gastroenteritis - Discharge Information *PRESCRIPTION DRUG MONITORING PROGRAM REVIEWED*: No *COPY OF PRESCRIPTION DRUG MONITORING REPORT IN PATIENT MANJEET: No Prescriptions: Dicyclomine [Bentyl] 20 mg PO Q8H PRN #12 tab PRN Reason: Abdominal Pain Nitrofurantoin Monohyd/M-Cryst [Macrobid 100 mg Capsule] 100 mg PO BID 5 Days #10 capsule Ondansetron [Zofran ODT] 4 mg PO Q6H PRN #10 tab.dis PRN Reason: Nausea/Vomiting Instructions: Viral Gastroenteritis, Adult, [id number] Referrals: Katarzyna Ray PA-C [Primary Care Provider] - Forms: ED Department Discharge Additional Instructions: Take the Zofran, Bentyl, and Macrobid as prescribed. First dose of Bentyl and Zofran were given in ER. Clear liquid diet for the next 24 to 72 hours and then slowly advance as tolerated. Return to ER for new or worsening symptoms of concern. Sepsis Event Note (ED) - Evaluation Sepsis Screening Result: No Definite Risk - Focused Exam Vital Signs: Vital Signs Temp Pulse Resp BP Pulse Ox 11/05/21 12:53 97.9 F 105 H 16 136/70 98 - My Orders Last 24 Hours: My Active Orders 11/05/21 13:01 Peripheral IV Insertion Adult [OM.PC] Stat 11/05/21 13:50 CULTURE URINE [MREF] Stat - Assessment/Plan Last 24 Hours: My Active Orders 11/05/21 13:01 Peripheral IV Insertion Adult [OM.PC] Stat 11/05/21 13:50 CULTURE URINE [MREF] Stat
[2021-11-05] MEDS ORDERED: Iopamidol 612 MG/ML 100 ML Bottle IVPUSH ONE (14:03)
[2021-11-05] MEDS ORDERED: Diatrizoate Meglumine/Diatrizoate Sodium 37% 120 ML Bottle PO ONE (14:03)
[2021-11-05] MEDS ORDERED: Iopamidol 612 MG/ML 50 ML SDV IVPUSH ONE (14:03)
--- NOTE | 2021-11-05 15:07 | CT ---
CT abdomen and pelvis Technique: Multiple axial sections were obtained from above the dome of the diaphragm inferiorly through the pubic symphysis. Intravenous and oral contrast were utilized. Delayed images were also obtained. Reconstructed coronal and sagittal images were obtained. Comparison: Prior CT study of 12/18/20. Findings: Visualized lung bases show nothing acute. Liver contains no focal abnormality. Spleen size is normal. Adrenal glands showed no nodule. Pancreas shows no abnormality. Surgical clips are seen from prior cholecystectomy. Kidneys show symmetric contrast enhancement. No hydronephrosis or mass is seen. Abdominal aorta shows no aneurysm. No retroperitoneal adenopathy is seen. No mesenteric abnormalities are seen. Small fat-containing umbilical hernia is noted. Appendix is not visualized. No pelvic mass or adenopathy is seen. There is some bowel wall thickening being seen within several loops of small bowel. No small bowel dilatation is seen. Delayed images show contrast within the ureters as well as within the bladder. Bone window settings were reviewed which show no acute finding. Impression: 1. Bowel wall thickening is seen within several loops of small bowel with no small bowel dilatation. Findings are highly suspicious for nonspecific enteritis. 2. No other acute finding is seen. Diagnostic code #3
[2021-11-05] MEDS ORDERED: Dicyclomine 10 MG Cap PO ONE (15:12)
== END 2021-11-05 15:30 | disposition home or self-care (01) ==
LOC: JD.ED 12:46
DX: K52.9 Noninfective gastroenteritis and colitis, unspecified (principal); E66.9 Obesity, unspecified; Z68.41 Body mass index [BMI] 40.0-44.9, adult; Z88.0 Allergy status to penicillin; Z91.048 Other nonmedicinal substance allergy status; Z88.2 Allergy status to sulfonamides; Z20.822 Contact with and (suspected) exposure to COVID-19
CPT/HCPCS: 36415; 74177; 80053; 81001; 83690; 84703; 85025; 86140; 87086; 87635; 96374; 96375; 99284; A9270; J1170; J2405; J7030; Q9963; Q9967; 99285; U0002

== ENCOUNTER 2023-03-04 07:00 | Day surgery (SDC) | payer BC ==
[~2023-03-04 07:00] MED LIST changes: +Sodium Chloride 0.9% 10 ML Syringe FLUSH SCH
[2023-03-04] MEDS ORDERED: Bupivacaine 0.5% 30 ML SDV ONE (07:18)
[2023-03-04] MEDS ORDERED: Propofol 200 MG/20 ML SDV ONE ×3 (07:18→08:13)
[2023-03-04] MEDS ORDERED: Rocuronium 50 MG/5 ML Vial ONE (07:18)
[2023-03-04] MEDS ORDERED: fentaNYL 100 MCG/2 ML SDV ONE (07:18)
[2023-03-04] MEDS ORDERED: Lidocaine 1% 4 ML ONE (07:18)
[2023-03-04] MEDS ORDERED: Dexamethasone 4 MG/ML 5 ML MDV ONE (08:07)
[2023-03-04] MEDS ORDERED: Ondansetron 4 MG/2 ML SDV ONE (08:07)
[2023-03-04] MEDS ORDERED: Ketorolac 30 MG/ML SDV ONE (08:08)
[2023-03-04] MEDS ORDERED: diphenhydrAMINE 50 MG/ML SDV ONE (08:08)
[2023-03-04] MEDS ORDERED: HYDROmorphone 0.5 MG/0.5 ML Syringe ONE (08:21)
[2023-03-04] MEDS ORDERED: Midazolam 1 MG/ML 2 ML SDV ONE (08:22)
[2023-03-04] MEDS ORDERED: Neostigmine Methylsulfate 10 MG/10 ML MDV ONE (08:31)
[2023-03-04] MEDS ORDERED: Ondansetron 4 MG/2 ML SDV IVPUSH PRN (09:22)
[2023-03-04] MEDS ORDERED: fentaNYL 100 MCG/2 ML SDV IVPUSH PRN (09:22)
[2023-03-04] MEDS ORDERED: HYDROmorphone 0.5 MG/0.5 ML Syringe IVPUSH PRN (09:22)
[2023-03-04] MEDS ORDERED: Metoclopramide 10 MG/2 ML SDV IM ONE (09:24)
[2023-03-04 11:34] VITALS: BP 116/72; PULSE 72
== END 2023-03-04 11:30 | disposition home or self-care (01) ==
LOC: JD.SDS 07:00
PROVIDERS: ATTEND Obstetrics & Gynecology
DX: N83.202 Unspecified ovarian cyst, left side (principal); F41.9 Anxiety disorder, unspecified; F32.A Depression, unspecified; Z90.49 Acquired absence of other specified parts of digestive tract; Z88.0 Allergy status to penicillin; Z88.2 Allergy status to sulfonamides; Z91.048 Other nonmedicinal substance allergy status; Z79.899 Other long term (current) drug therapy; Z87.891 Personal history of nicotine dependence
CPT/HCPCS: 36415; 49320; 80053; 81003; 81025; 85025; J1100; J1170; J1200; J1885; J2250; J2405; J2704; J2710; J3010; J3490; J7120; 00840

== ENCOUNTER 2024-08-04 09:05 | Emergency (ER) | payer BC ==
[2024-08-04 09:15] VITALS: BP 119/77; PULSE 78
[2024-08-04] MEDS: Sodium Chloride 0.9% 10 ML Syringe FLUSH PRN (10:32)
[2024-08-04 10:40] LABS: APPEARANCE,URINE CLEAR (Clear); BILIRUBIN,URINE NEGATIVE (Negative); COLOR,URINE YELLOW (Yellow); GLUCOSE,URINE NEGATIVE (Negative); KETONES,URINE NEGATIVE (Negative); LEUKOCYTE ESTERASE,URINE 1+ (Negative); NITRITE,URINE NEGATIVE (Negative); OCCULT BLOOD,URINE NEGATIVE (Negative); PH,URINE 5.5 (5.0-8.0); PROTEIN,URINE 1+ (Negative); UROBILINOGEN,URINE 0.2 (0.2-1.0)
[2024-08-04 10:40] LABS: BASOPHILS ABSOLUTE AUTO 0.1 K/mm3 (0.0-0.2); BASOPHILS PERCENT AUTO 0.9 % (0.0-1.0); EOSINOPHILS ABSOLUTE AUTO 0.1 K/mm3 (0.0-0.4); HEMATOCRIT 43.1 % (37.0-47.0); HEMOGLOBIN 14.5 gm/dl (12.0-16.0); IMMATURE GRAN ABSOLUTE AUTO 0.05 K/mm3 (0.00-0.05); IMMATURE GRAN PERCENT AUTO 0.4 % (0.0-0.4); LYMPHOCYTES ABSOLUTE AUTO 1.4 K/mm3 (1.0-4.8); LYMPHOCYTES PERCENT AUTO 10.6 % (24.0-44.0); MEAN CORPUSCULAR HEMOGLOBIN 29.1 pg (28.0-32.0); MEAN CORPUSCULAR HGB CONC 33.6 g/dl (32.0-36.0); MEAN CORPUSCULAR VOLUME 86.5 fl (83.0-99.0); MEAN PLATELET VOLUME 8.3 fl (9.4-12.3); MONOCYTES PERCENT AUTO 7.7 % (0.0-8.0); NEUTROPHILS ABSOLUTE AUTO 10.1 K/mm3 (1.8-7.7); NEUTROPHILS PERCENT AUTO 79.4 % (41.0-71.0); PLATELET COUNT,PLT 379 K/mm3 (150-400); RED BLOOD CELL COUNT 4.98 M/mm3 (4.10-5.30); WHITE BLOOD CELL COUNT,WBC 12.72 K/mm3 (3.9-11.3)
[2024-08-04 11:00] LABS: A/G RATIO 0.9 (1-2); ALBUMIN 3.5 g/dl (3.4-5.0); ANION GAP 16.8 (5-15); BILIRUBIN TOTAL 0.5 mg/dL (0.2-1.0); CALCIUM 8.9 mg/dL (8.5-10.1); CREATININE 1.5 mg/dL (0.55-1.02); EST CRCL DRUG DOSING (CG) 45.63 mL/min; POTASSIUM,K 3.8 mEq/L (3.5-5.1); PROTEIN TOTAL,TP 7.3 g/dl (6.4-8.2)
[2024-08-04 11:17] LABS: BACTERIA,URINE FEW /hpf (FEW); MUCUS,URINE FEW /hpf (FEW); RBC,URINE 0-5 /hpf (0-5)
[2024-08-04] MEDS: Sodium Chloride 0.9% 1,000 ML IV ONE (12:18)
[2024-08-04] MEDS: cefTRIAXone 1 GM in Sodium Chloride 0.9% 100 ML IV ONE (13:44)
== END 2024-08-04 14:45 | disposition home or self-care (01) ==
LOC: JD.ED 09:05
DX: N12 Tubulo-interstitial nephritis, not specified as acute or chronic (principal); E66.9 Obesity, unspecified; Z88.0 Allergy status to penicillin; Z88.2 Allergy status to sulfonamides; Z88.8 Allergy status to other drugs, medicaments and biological substances; Z79.899 Other long term (current) drug therapy; Z86.16 Personal history of COVID-19; Z90.49 Acquired absence of other specified parts of digestive tract; Z68.38 Body mass index [BMI] 38.0-38.9, adult
CPT/HCPCS: 36415; 74176; 80053; 81001; 84703; 85025; 87086; 96361; 96365; 99284; J0696; J3490; J7030; 99283

== ENCOUNTER 2025-02-25 19:11 | Emergency (ER) | payer BC ==
[2025-02-25] MEDS: Ondansetron 4 MG/2 ML SDV IVPUSH ONE (20:04)
[2025-02-25] MEDS: Sodium Chloride 0.9% 10 ML Syringe FLUSH PRN (20:04)
[2025-02-25] MEDS: Lactated Ringers 1,000 ML IV ONE (20:04)
[2025-02-25 20:14] LABS: BASOPHILS ABSOLUTE AUTO 0.1 K/mm3 (0.0-0.2); BASOPHILS PERCENT AUTO 0.8 % (0.0-1.0); EOSINOPHILS ABSOLUTE AUTO 0.1 K/mm3 (0.0-0.4); HEMATOCRIT 47.1 % (37.0-47.0); HEMOGLOBIN 15.6 gm/dl (12.0-16.0); IMMATURE GRAN ABSOLUTE AUTO 0.03 K/mm3 (0.00-0.05); IMMATURE GRAN PERCENT AUTO 0.3 % (0.0-0.4); LYMPHOCYTES ABSOLUTE AUTO 1.5 K/mm3 (1.0-4.8); LYMPHOCYTES PERCENT AUTO 14.4 % (24.0-44.0); MEAN CORPUSCULAR HEMOGLOBIN 29.2 pg (28.0-32.0); MEAN CORPUSCULAR HGB CONC 33.1 g/dl (32.0-36.0); MEAN PLATELET VOLUME 8.1 fl (9.4-12.3); MONOCYTES PERCENT AUTO 8.9 % (0.0-8.0); NEUTROPHILS PERCENT AUTO 74.6 % (41.0-71.0); PLATELET COUNT,PLT 358 K/mm3 (150-400); RED BLOOD CELL COUNT 5.35 M/mm3 (4.10-5.30); WHITE BLOOD CELL COUNT,WBC 10.66 K/mm3 (3.9-11.3)
[2025-02-25 20:33] LABS: ALBUMIN 3.8 g/dl (3.4-5.0); ANION GAP 15.4 (5-15); BILIRUBIN TOTAL 0.3 mg/dL (0.2-1.0); BUN/CREATININE RATIO 16.3 (14-18); C-REACTIVE PROTEIN 1.46 mg/dL (<0.30); CREATININE 0.8 mg/dL (0.55-1.02); EST CRCL DRUG DOSING (CG) 85.56 mL/min; MAGNESIUM 1.5 mg/dL (1.8-2.4); POTASSIUM,K 3.4 mEq/L (3.5-5.1); PROTEIN TOTAL,TP 7.7 g/dl (6.4-8.2)
[2025-02-25] MEDS ORDERED: Lactated Ringers 1,000 ML IV ONE (20:42)
[2025-02-25] MEDS: Potassium Chloride 20 MEQ Tab.ER PO ONE (20:58)
[2025-02-25] MEDS: Magnesium Oxide 400 MG Tab PO ONE (20:58)
[2025-02-25 21:22] VITALS: BP 120/87; PULSE 71
== END 2025-02-25 21:21 | disposition home or self-care (01) ==
LOC: JD.ED 19:11
DX: E86.0 Dehydration (principal); E83.42 Hypomagnesemia; E87.6 Hypokalemia; Z88.0 Allergy status to penicillin; Z91.048 Other nonmedicinal substance allergy status; Z88.2 Allergy status to sulfonamides; Z79.899 Other long term (current) drug therapy; Z86.16 Personal history of COVID-19
CPT/HCPCS: 36415; 80053; 83690; 83735; 84702; 85025; 86140; 87045; 87046; 87899; 96361; 96374; 99283; 99284-25; A9270-GY; J2405; J7120